=== PATIENT | male | born 1960 | race Caucasian/White ===

== ENCOUNTER 2017-02-21 10:00 | Emergency (ER) | payer MEDICARE, OTHER ==
[~2017-02-21 10:00] MED LIST: AMB10 PO; AMIT100 PO; AMOXIL500C PO; APRES25 PO; ASA5GR PO; ASAB PO; ASPIRIN PO; AT25 PO; ATV1 PO; B121000P IM; BACLOFEN20 MG PO; CELEXA40 MG PO; CIP2 PO; CORTISONE INJECTION; CYMBALTA30 PO; CYMBALTA60 PO; DIGITEK0.125 MG PO; FLAG500TAB PO; FLEX PO; FLOMAX4 PO; FLONASE NAS; FLORASTOR250 MG PO; HCTZ PO; HYGROTON 25 MG25 MG PO; KDUR10 PO; KDUR20 PO; KLONO5 PO; KLOR-CON M2020 MEQ PO; LANTUS SC; LEVAQUIN750 MG PO; LEXAPRO10 PO; LIOR10 PO; LOM PO; LYRICA150 MG PO; METOPROLOL PO; MIRALAXPKT PO; MOBIC15 MG PO; MSCONT60 PO; MSCONTIN PO; MULTIPLE VIT PO; NORCO1 TA1 PO; NORCO1 TAB PO; PCET PO; PERCOCET1 TA4 PO; PLAVIX PO; PRAVACHOL40 MG PO; PRIN10 PO; PRIN5 PO; PROVHFA INH; PROZAC40 MG PO; REM15 PO; REMERON30 MG PO; REST15 PO; SILVADENE1 % TOP; SIMVASTATIN PO; SOMATAB PO; T PO; TOPXL25 PO; TRAZ100 PO; TRAZODONE150 MG PO; TRAZODONE300 MG PO; TRIDERM0.1 % TOP; ULORIC40 MG PO; V5 PO; VALIUM10 MG PO; VENTOLIN HFA INH; X5 PO; XANAX1 MG PO; ZANAFLEX2 MG PO; ZETIA PO; ZOCOR20 PO; ZOFRAN4 PO
[2017-02-21 10:46] LABS: BASOPHILS 0.1 %; BASOPHILS ABSOLUTE 0.01 10/3/uL (0.0-0.16); EOSINOPHILS 2.5 %; EOSINOPHILS ABSOLUTE 0.18 10/3/uL (0.0-0.53); ER CBC TAT 0 Hrs 07 Mins; HEMOGLOBIN 13.8 g/dL (13.6-17.8); IMMATURE GRANULOCYTES 0.1 %; IMMATURE GRANULOCYTES ABSOLUTE 0.01 10/3/uL (0.0-0.11); LYMPHOCYTES 16.9 %; MEAN CORPUS HGB CONC 33.7 g/dL (32.0-36.0); MEAN CORPUSCULAR HEMOGLOB 31.2 pg (26.0-34.0); MEAN CORPUSCULAR VOLUME 92.6 fL (80-100); MEAN PLATELET VOLUME 9.1 fL (9.2-13.0); MONOCYTES 10.4 %; MONOCYTES ABSOLUTE 0.74 10/3/uL (0.21-1.20); NEUTROPHILS ABSOLUTE 4.97 10/3/uL (2.02-8.40); PLATELET COUNT 246 10/3/uL (150-400); RBC DISTRIBUTION WIDTH 13.1 % (12.0-16.0); RED CELL COUNT 4.43 10/6/uL (4.7-6.1); WHITE BLOOD CELLS 7.1 10/3/uL (4.5-10.5)
[2017-02-21 10:49] LABS: MANUAL DIFF NO %
[2017-02-21 10:51] LABS: ASCORBIC ACID (UR NOT ORDER) NEG (NEG); BILIRUBIN, URINE NEGATIVE (NEG); ER URINALYSIS TAT 0 Hrs 12 Mins; KETONE, URINE NEGATIVE (NEG); LEUKOCYTE ESTERASE(NOT OR SMALL (NEG); NITRITE (URINE) NEG (NEG); WBC (NOT ORDERED) (RFLEX) 8 (0-5)
[2017-02-21 11:00] LABS: A/G RATIO 0.9 (0.7-1.9); ALBUMIN 3.4 G/DL (3.5-5.0); BUN (BLOOD UREA NITROGEN) 7 MG/DL (6-23); CALCIUM, SERUM 8.8 MG/DL (8.5-10.4); CHLORIDE, SERUM 104 MMOL/L (96-112); CO2 (CARBON DIOXIDE) 28 MMOL/L (24-34); CREATININE 0.98 MG/DL (0.70-1.30); GFR AFRICAN AMERICAN 98 ML/MIN (>=60); GFR NON AFRICAN AMERICAN 85 ML/MIN (>=60); GLOBULIN 3.7 G/DL (2.5-4.1); SGOT(AST) 13 U/L (5-40); SGPT(ALT) 19 U/L (5-65); SODIUM, SERUM 142 MMOL/L (135-148); TOTAL PROTEIN 7.1 G/DL (6.0-8.5)
[2017-02-21 11:01] LABS: ALKALINE PHOSPHATASE 121 U/L (45-117); GLUCOSE, SERUM 97 MG/DL (60-99); POTASSIUM, SERUM 3.3 MMOL/L (3.5-5.3); TOTAL BILIRUBIN 1.3 MG/DL (0-1.2)
[2017-05-15] MEDS ORDERED: NORV10 PO (10:38)
[2017-05-15] MEDS ORDERED: FLOMAX4 PO (10:38)
[2017-05-15] MEDS ORDERED: LIDODERM TOP (10:39)
[2017-05-15] MEDS ORDERED: LIOR10 PO (10:39)
[2017-05-15] MEDS ORDERED: VOLTAREN1 % TOP (10:39)
[2017-05-15] MEDS ORDERED: DSS PO (10:40)
[2017-05-15] MEDS ORDERED: MELA3 PO (10:40)
[2017-05-15] MEDS ORDERED: VITAMIN D31000 UNIT PO (10:40)
[2017-05-15] MEDS ORDERED: LOM PO (10:41)
[2017-05-15] MEDS ORDERED: MSIMMR15 PO (10:41)
[2017-05-15] MEDS ORDERED: KADIANSR30 PO (10:41)
[2017-05-15] MEDS ORDERED: LYRICA75 PO (10:42)
[2017-05-15] MEDS ORDERED: MYCOSOINT TOP (10:42)
[2017-05-15] MEDS ORDERED: LEVAQUIN750 MG PO (10:43)
[2017-05-15] MEDS ORDERED: KLONO5 PO (10:43)
[2017-05-16] MEDS ORDERED: L20 PO (14:12)
[2017-05-16] MEDS ORDERED: LEXAPRO20 PO (14:14)
[2017-05-16] MEDS ORDERED: VITAMIN B-121000 MC1 SL (14:14)
[2017-05-16] MEDS ORDERED: MICRO-K10 MEQ PO (14:15)
[2017-05-16] MEDS ORDERED: FLOMAX4 PO (14:16)
[2017-05-16] MEDS ORDERED: NORV10 PO (14:16)
[2017-05-16] MEDS ORDERED: LIOR10 PO (14:17)
[2017-05-16] MEDS ORDERED: LIDODERM TOP (14:17)
[2017-05-16] MEDS ORDERED: VOLTAREN1 % TOP (14:18)
[2017-05-16] MEDS ORDERED: TOPXL25 PO (14:18)
[2017-05-16] MEDS ORDERED: ASAEC PO (14:19)
[2017-05-16] MEDS ORDERED: VITAMIN D31000 UNIT PO (14:19)
[2017-05-16] MEDS ORDERED: MELA3 PO (14:20)
[2017-05-16] MEDS ORDERED: MSIMMR15 PO (14:21)
[2017-05-16] MEDS ORDERED: D.O.S.100 MG PO (14:21)
[2017-05-16] MEDS ORDERED: V5 PO (14:22)
[2017-05-16] MEDS ORDERED: LOM PO (14:22)
[2017-05-16] MEDS ORDERED: LYRICA150 MG PO (14:23)
[2017-05-16] MEDS ORDERED: MORPHINE PO (14:24)
[2017-05-16] MEDS ORDERED: BUSPAR5 PO (14:26)
[2017-05-16] MEDS ORDERED: KLONO5 PO (14:26)
[2017-06-13] MEDS ORDERED: LIOR10 PO (09:47)
[2017-06-13] MEDS ORDERED: BISR PR (10:03)
[2017-06-13] MEDS ORDERED: ZOFRAN4 PO (10:03)
[2017-06-13] MEDS ORDERED: HUMALOG SC (10:09)
== END 2017-02-21 14:00 | disposition home or self-care (01) ==
LOC: ER 10:00
PROVIDERS: Emergency Medicine
DX: M54.9 Dorsalgia, unspecified (principal); G89.29 Other chronic pain; I25.2 Old myocardial infarction; I10 Essential (primary) hypertension; K21.9 Gastro-esophageal reflux disease without esophagitis; F32.9 Major depressive disorder, single episode, unspecified; F41.9 Anxiety disorder, unspecified; Z95.1 Presence of aortocoronary bypass graft; Z86.73 Personal history of transient ischemic attack (TIA), and cerebral infarction without residual deficits; Z95.5 Presence of coronary angioplasty implant and graft; E78.5 Hyperlipidemia, unspecified; Z91.040 Latex allergy status; Z79.82 Long term (current) use of aspirin; Z79.899 Other long term (current) drug therapy
CPT/HCPCS: 80053; 81001; 83690; 85025; 87086; 96372; 99283; J1170

== ENCOUNTER 2017-03-08 11:09 | Inpatient (IN) | payer MEDICARE, OTHER ==
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
[2017-03-08 11:42] LABS: BASOPHILS 0.1 %; BASOPHILS ABSOLUTE 0.01 10/3/uL (0.0-0.16); EOSINOPHILS 0.5 %; EOSINOPHILS ABSOLUTE 0.05 10/3/uL (0.0-0.53); HEMATOCRIT 39.9 % (40.0-51.0); HEMOGLOBIN 13.2 g/dL (13.6-17.8); IMMATURE GRANULOCYTES ABSOLUTE 0.11 10/3/uL (0.0-0.11); LYMPHOCYTES 21.2 %; LYMPHOCYTES ABSOLUTE 2.29 10/3/uL (0.67-4.30); MANUAL DIFF NO %; MEAN CORPUS HGB CONC 33.1 g/dL (32.0-36.0); MEAN CORPUSCULAR HEMOGLOB 31.4 pg (26.0-34.0); MEAN PLATELET VOLUME 9.2 fL (9.2-13.0); MONOCYTES 6.6 %; MONOCYTES ABSOLUTE 0.71 10/3/uL (0.21-1.20); NEUTROPHILS 70.6 %; NEUTROPHILS ABSOLUTE 7.62 10/3/uL (2.02-8.40); PLATELET COUNT 206 10/3/uL (150-400); WHITE BLOOD CELLS 10.8 10/3/uL (4.5-10.5)
[2017-03-08 12:03] LABS: A/G RATIO 0.9 (0.7-1.9); ALBUMIN 2.9 G/DL (3.5-5.0); CALCIUM, SERUM 8.1 MG/DL (8.5-10.4); CHLORIDE, SERUM 106 MMOL/L (96-112); CO2 (CARBON DIOXIDE) 29 MMOL/L (24-34); CREATININE 1.07 MG/DL (0.70-1.30); GFR AFRICAN AMERICAN 88 ML/MIN (>=60); GFR NON AFRICAN AMERICAN 76 ML/MIN (>=60); GLOBULIN 3.3 G/DL (2.5-4.1); SGOT(AST) 18 U/L (5-40); SGPT(ALT) 29 U/L (5-65); SODIUM, SERUM 143 MMOL/L (135-148); TOTAL PROTEIN 6.2 G/DL (6.0-8.5); TROPONIN I <0.02 NG/ML (<0.05)
[2017-03-08 12:06] LABS: ALKALINE PHOSPHATASE 165 U/L (45-117); BUN (BLOOD UREA NITROGEN) 14 MG/DL (6-23); GLUCOSE, SERUM 144 MG/DL (60-99); POTASSIUM, SERUM 4.2 MMOL/L (3.5-5.3); TOTAL BILIRUBIN 0.5 MG/DL (0-1.2)
[2017-03-08 13:17] LABS: ASCORBIC ACID (UR NOT ORDER) NEG (NEG); BILIRUBIN, URINE NEGATIVE (NEG); ER URINALYSIS TAT 0 Hrs 12 Mins; KETONE, URINE NEGATIVE (NEG); LEUKOCYTE ESTERASE(NOT OR NEG (NEG); NITRITE (URINE) NEG (NEG); WBC (NOT ORDERED) (RFLEX) 1 (0-5)
[2017-03-08 13:29] LABS: AMPHETAMINES (NOT ORD) NEG (NEG); BARBITURATES (NOT ORDERED NEG (NEG); BENZODIAZEPINES (NOT ORD) POS (NEG); CANNABINOIDS (THC) NEG (NEG); COCAINE (NOT ORDERED) NEG (NEG); OPIATES POS (NEG); PHENCYCLIDINE(PCP) NEG (NEG); TRICYCLICS POS (NEG)
[2017-03-08 13:46] LABS: ACETAMINOPHEN LEVEL (TYLENOL) < 2.0 MCG/ML (10.0-20.0); ALCOHOL < 10 MG/DL (0); SALICYLATE < 1.7 MG/DL (-)
[2017-03-08] MEDS ORDERED: LYRICA75 PO (21:30)
[2017-03-08] MEDS ORDERED: VALIUM10 MG PO (21:36)
[2017-03-08] MEDS ORDERED: ASABAYER PO (21:36)
[2017-03-08] MEDS ORDERED: DOX10 PO (21:36)
[2017-03-08] MEDS ORDERED: PROZAC PO (21:37)
[2017-03-08] MEDS ORDERED: LEXAPRO20 PO (21:38)
[2017-03-08] MEDS ORDERED: L20 PO (21:38)
[2017-03-08] MEDS ORDERED: TOPXL25 PO (21:38)
[2017-03-08] MEDS ORDERED: OXYCOD PO (21:39)
[2017-03-08] MEDS ORDERED: KLOR-CON 1010 MEQ PO (21:39)
[2017-03-08] MEDS ORDERED: BUSPAR10 PO (21:40)
[2017-03-10 06:16] LABS: BASOPHILS 0 %; EOSINOPHILS 0.2 %; EOSINOPHILS ABSOLUTE 0.03 10/3/uL (0.0-0.53); HEMATOCRIT 42.6 % (40.0-51.0); IMMATURE GRANULOCYTES 0.4 %; IMMATURE GRANULOCYTES ABSOLUTE 0.05 10/3/uL (0.0-0.11); LYMPHOCYTES ABSOLUTE 1.11 10/3/uL (0.67-4.30); MEAN CORPUS HGB CONC 32.9 g/dL (32.0-36.0); MEAN CORPUSCULAR HEMOGLOB 31.7 pg (26.0-34.0); MEAN CORPUSCULAR VOLUME 96.6 fL (80-100); MEAN PLATELET VOLUME 9.6 fL (9.2-13.0); MONOCYTES 8.5 %; MONOCYTES ABSOLUTE 1.05 10/3/uL (0.21-1.20); NEUTROPHILS 81.9 %; NEUTROPHILS ABSOLUTE 10.13 10/3/uL (2.02-8.40); PLATELET COUNT 195 10/3/uL (150-400); RBC DISTRIBUTION WIDTH 14.5 % (12.0-16.0); RED CELL COUNT 4.41 10/6/uL (4.7-6.1); WHITE BLOOD CELLS 12.4 10/3/uL (4.5-10.5)
[2017-03-10 06:18] LABS: MANUAL DIFF NO %
[2017-03-10 06:58] LABS: BUN (BLOOD UREA NITROGEN) 15 MG/DL (6-23); CALCIUM, SERUM 8.7 MG/DL (8.5-10.4); CHLORIDE, SERUM 102 MMOL/L (96-112); CO2 (CARBON DIOXIDE) 30 MMOL/L (24-34); CREATININE 0.86 MG/DL (0.70-1.30); FREE T4 1.25 NG/DL (0.76-1.46); GFR AFRICAN AMERICAN 111 ML/MIN (>=60); GFR NON AFRICAN AMERICAN 96 ML/MIN (>=60); POTASSIUM, SERUM 3.8 MMOL/L (3.5-5.3); SODIUM, SERUM 140 MMOL/L (135-148)
[2017-03-10 06:59] LABS: GLUCOSE, SERUM 98 MG/DL (60-99)
[2017-03-10 07:00] LABS: FOLATE 8.1 NG/ML (>5.2)
[2017-03-10 19:29] LABS: BASOPHILS 0.1 %; BASOPHILS ABSOLUTE 0.01 10/3/uL (0.0-0.16); EOSINOPHILS 0.3 %; EOSINOPHILS ABSOLUTE 0.04 10/3/uL (0.0-0.53); HEMATOCRIT 42.1 % (40.0-51.0); HEMOGLOBIN 13.7 g/dL (13.6-17.8); IMMATURE GRANULOCYTES 0.5 %; IMMATURE GRANULOCYTES ABSOLUTE 0.07 10/3/uL (0.0-0.11); LYMPHOCYTES 9.8 %; LYMPHOCYTES ABSOLUTE 1.36 10/3/uL (0.67-4.30); MEAN CORPUS HGB CONC 32.5 g/dL (32.0-36.0); MEAN CORPUSCULAR HEMOGLOB 31.4 pg (26.0-34.0); MEAN CORPUSCULAR VOLUME 96.3 fL (80-100); MEAN PLATELET VOLUME 9.5 fL (9.2-13.0); MONOCYTES 7.9 %; MONOCYTES ABSOLUTE 1.09 10/3/uL (0.21-1.20); NEUTROPHILS 81.4 %; NEUTROPHILS ABSOLUTE 11.24 10/3/uL (2.02-8.40); PLATELET COUNT 187 10/3/uL (150-400); RBC DISTRIBUTION WIDTH 14.1 % (12.0-16.0); RED CELL COUNT 4.37 10/6/uL (4.7-6.1); WHITE BLOOD CELLS 13.8 10/3/uL (4.5-10.5)
[2017-03-10 19:30] LABS: MANUAL DIFF NO %
[2017-03-10 19:41] LABS: BUN (BLOOD UREA NITROGEN) 15 MG/DL (6-23); CALCIUM, SERUM 8.6 MG/DL (8.5-10.4); CHLORIDE, SERUM 99 MMOL/L (96-112); CO2 (CARBON DIOXIDE) 31 MMOL/L (24-34); GFR AFRICAN AMERICAN 96 ML/MIN (>=60); GFR NON AFRICAN AMERICAN 83 ML/MIN (>=60); GLUCOSE, SERUM 112 MG/DL (60-99); POTASSIUM, SERUM 3.5 MMOL/L (3.5-5.3); SODIUM, SERUM 138 MMOL/L (135-148)
[2017-03-11 06:45] LABS: BASOPHILS 0 %; EOSINOPHILS 0.2 %; EOSINOPHILS ABSOLUTE 0.03 10/3/uL (0.0-0.53); HEMATOCRIT 37.1 % (40.0-51.0); HEMOGLOBIN 12.3 g/dL (13.6-17.8); IMMATURE GRANULOCYTES 0.3 %; IMMATURE GRANULOCYTES ABSOLUTE 0.04 10/3/uL (0.0-0.11); LYMPHOCYTES 6.3 %; LYMPHOCYTES ABSOLUTE 0.78 10/3/uL (0.67-4.30); MANUAL DIFF NO %; MEAN CORPUS HGB CONC 33.2 g/dL (32.0-36.0); MEAN CORPUSCULAR HEMOGLOB 31.5 pg (26.0-34.0); MEAN CORPUSCULAR VOLUME 95.1 fL (80-100); MEAN PLATELET VOLUME 9.9 fL (9.2-13.0); MONOCYTES 6.9 %; MONOCYTES ABSOLUTE 0.86 10/3/uL (0.21-1.20); NEUTROPHILS 86.3 %; NEUTROPHILS ABSOLUTE 10.67 10/3/uL (2.02-8.40); PLATELET COUNT 163 10/3/uL (150-400); RBC DISTRIBUTION WIDTH 14.1 % (12.0-16.0); WHITE BLOOD CELLS 12.4 10/3/uL (4.5-10.5)
[2017-03-11 06:55] LABS: BUN (BLOOD UREA NITROGEN) 13 MG/DL (6-23); CALCIUM, SERUM 8.5 MG/DL (8.5-10.4); CHLORIDE, SERUM 98 MMOL/L (96-112); CO2 (CARBON DIOXIDE) 33 MMOL/L (24-34); CREATININE 0.82 MG/DL (0.70-1.30); GFR AFRICAN AMERICAN 113 ML/MIN (>=60); GFR NON AFRICAN AMERICAN 97 ML/MIN (>=60); GLUCOSE, SERUM 121 MG/DL (60-99); POTASSIUM, SERUM 3.7 MMOL/L (3.5-5.3); SODIUM, SERUM 138 MMOL/L (135-148)
[2017-03-12 11:23] LABS: BASOPHILS 0 %; EOSINOPHILS 0.2 %; EOSINOPHILS ABSOLUTE 0.03 10/3/uL (0.0-0.53); HEMATOCRIT 38.8 % (40.0-51.0); HEMOGLOBIN 13.3 g/dL (13.6-17.8); IMMATURE GRANULOCYTES 0.4 %; IMMATURE GRANULOCYTES ABSOLUTE 0.05 10/3/uL (0.0-0.11); LYMPHOCYTES 6.9 %; LYMPHOCYTES ABSOLUTE 0.85 10/3/uL (0.67-4.30); MEAN CORPUS HGB CONC 34.3 g/dL (32.0-36.0); MEAN CORPUSCULAR HEMOGLOB 31.9 pg (26.0-34.0); MEAN PLATELET VOLUME 10.2 fL (9.2-13.0); MONOCYTES 10.3 %; MONOCYTES ABSOLUTE 1.27 10/3/uL (0.21-1.20); NEUTROPHILS 82.2 %; NEUTROPHILS ABSOLUTE 10.13 10/3/uL (2.02-8.40); PLATELET COUNT 179 10/3/uL (150-400); RBC DISTRIBUTION WIDTH 14.1 % (12.0-16.0); RED CELL COUNT 4.17 10/6/uL (4.7-6.1); WHITE BLOOD CELLS 12.3 10/3/uL (4.5-10.5)
[2017-03-12 11:25] LABS: MANUAL DIFF NO %
[2017-03-12 11:35] LABS: BUN (BLOOD UREA NITROGEN) 12 MG/DL (6-23); CALCIUM, SERUM 9.2 MG/DL (8.5-10.4); CHLORIDE, SERUM 96 MMOL/L (96-112); CO2 (CARBON DIOXIDE) 33 MMOL/L (24-34); CREATININE 0.81 MG/DL (0.70-1.30); GFR AFRICAN AMERICAN 114 ML/MIN (>=60); GFR NON AFRICAN AMERICAN 98 ML/MIN (>=60); GLUCOSE, SERUM 101 MG/DL (60-99); SODIUM, SERUM 137 MMOL/L (135-148)
[2017-03-12 11:36] LABS: PHOSPHORUS, SERUM 2.1 MG/DL (2.5-4.5); POTASSIUM, SERUM 3.3 MMOL/L (3.5-5.3)
[2017-03-12 14:14] LABS: ASCORBIC ACID (UR NOT ORDER) NEG (NEG); BILIRUBIN, URINE NEGATIVE (NEG); KETONE, URINE TRACE MG/DL (NEG); LEUKOCYTE ESTERASE(NOT OR NEG (NEG); WBC (NOT ORDERED) (RFLEX) 1 (0-5)
[2017-03-13 06:57] LABS: PHOSPHORUS, SERUM 2.8 MG/DL (2.5-4.5); POTASSIUM, SERUM 3.4 MMOL/L (3.5-5.3)
[2017-03-15 11:22] LABS: BASOPHILS 0 %; EOSINOPHILS 0.6 %; EOSINOPHILS ABSOLUTE 0.05 10/3/uL (0.0-0.53); IMMATURE GRANULOCYTES 0.5 %; IMMATURE GRANULOCYTES ABSOLUTE 0.04 10/3/uL (0.0-0.11); LYMPHOCYTES ABSOLUTE 0.53 10/3/uL (0.67-4.30); MEAN CORPUS HGB CONC 33.1 g/dL (32.0-36.0); MEAN CORPUSCULAR HEMOGLOB 31.4 pg (26.0-34.0); MEAN CORPUSCULAR VOLUME 94.9 fL (80-100); MEAN PLATELET VOLUME 9.1 fL (9.2-13.0); MONOCYTES 4.2 %; MONOCYTES ABSOLUTE 0.37 10/3/uL (0.21-1.20); NEUTROPHILS 88.7 %; NEUTROPHILS ABSOLUTE 7.79 10/3/uL (2.02-8.40); PLATELET COUNT 186 10/3/uL (150-400); RBC DISTRIBUTION WIDTH 14.1 % (12.0-16.0); WHITE BLOOD CELLS 8.8 10/3/uL (4.5-10.5)
[2017-03-15 11:24] LABS: HEMATOCRIT 31.4 % (40.0-51.0); HEMOGLOBIN 10.4 g/dL (13.6-17.8); MANUAL DIFF NO %; RED CELL COUNT 3.31 10/6/uL (4.7-6.1)
[2017-03-15 11:34] LABS: BUN (BLOOD UREA NITROGEN) 13 MG/DL (6-23); CALCIUM, SERUM 7.9 MG/DL (8.5-10.4); CHLORIDE, SERUM 104 MMOL/L (96-112); CO2 (CARBON DIOXIDE) 29 MMOL/L (24-34); CREATININE 0.78 MG/DL (0.70-1.30); GFR AFRICAN AMERICAN 115 ML/MIN (>=60); GFR NON AFRICAN AMERICAN 100 ML/MIN (>=60); GLUCOSE, SERUM 142 MG/DL (60-99); POTASSIUM, SERUM 3.9 MMOL/L (3.5-5.3); SODIUM, SERUM 139 MMOL/L (135-148)
[2017-03-16 06:01] LABS: HEMATOCRIT 28.4 % (40.0-51.0); HEMOGLOBIN 9.5 g/dL (13.6-17.8); MEAN CORPUS HGB CONC 33.5 g/dL (32.0-36.0); MEAN CORPUSCULAR HEMOGLOB 31.7 pg (26.0-34.0); MEAN CORPUSCULAR VOLUME 94.7 fL (80-100); PLATELET COUNT 234 10/3/uL (150-400); RBC DISTRIBUTION WIDTH 14.4 % (12.0-16.0); WHITE BLOOD CELLS 12.2 10/3/uL (4.5-10.5)
[2017-03-16 06:13] LABS: BUN (BLOOD UREA NITROGEN) 14 MG/DL (6-23); CALCIUM, SERUM 8.3 MG/DL (8.5-10.4); CHLORIDE, SERUM 105 MMOL/L (96-112); CO2 (CARBON DIOXIDE) 34 MMOL/L (24-34); CREATININE 0.79 MG/DL (0.70-1.30); GFR AFRICAN AMERICAN 115 ML/MIN (>=60); GFR NON AFRICAN AMERICAN 99 ML/MIN (>=60); GLUCOSE, SERUM 132 MG/DL (60-99); POTASSIUM, SERUM 4.3 MMOL/L (3.5-5.3); SODIUM, SERUM 141 MMOL/L (135-148)
[2017-03-16 07:14] LABS: BAND NEUTROPHILS 1 %; LYMPHOCYTES 7 %; LYMPHOCYTES ABSOLUTE (CALC) 0.85 10/3/uL (0.67-4.30); MONOCYTES 7 %; MONOCYTES ABSOLUTE (CALC) 0.85 10/3/uL (0.21-1.20); NEUTROPHILS ABSOLUTE (CALC) 10.49 10/3/uL (2.02-8.40); PLATELET ESTIMATE ADQ (ADEQUATE); RBC MORPHOLOGY NORM (NORMAL); SEGMENTED NEUTROPHIL (0) 85 %; TOTAL NUCLEATED CELLS 100
[2017-03-17 04:09] LABS: BASOPHILS 0.1 %; BASOPHILS ABSOLUTE 0.01 10/3/uL (0.0-0.16); EOSINOPHILS 2.5 %; EOSINOPHILS ABSOLUTE 0.25 10/3/uL (0.0-0.53); HEMATOCRIT 27.2 % (40.0-51.0); IMMATURE GRANULOCYTES 0.4 %; IMMATURE GRANULOCYTES ABSOLUTE 0.04 10/3/uL (0.0-0.11); LYMPHOCYTES 17.6 %; LYMPHOCYTES ABSOLUTE 1.78 10/3/uL (0.67-4.30); MEAN CORPUS HGB CONC 33.1 g/dL (32.0-36.0); MEAN CORPUSCULAR HEMOGLOB 31.5 pg (26.0-34.0); MEAN CORPUSCULAR VOLUME 95.1 fL (80-100); MEAN PLATELET VOLUME 9.4 fL (9.2-13.0); MONOCYTES 8.7 %; MONOCYTES ABSOLUTE 0.88 10/3/uL (0.21-1.20); NEUTROPHILS 70.7 %; NEUTROPHILS ABSOLUTE 7.15 10/3/uL (2.02-8.40); PLATELET COUNT 242 10/3/uL (150-400); RBC DISTRIBUTION WIDTH 14.3 % (12.0-16.0); RED CELL COUNT 2.86 10/6/uL (4.7-6.1); WHITE BLOOD CELLS 10.1 10/3/uL (4.5-10.5)
[2017-03-17 04:10] LABS: MANUAL DIFF NO %
[2017-03-17 04:21] LABS: CALCIUM, SERUM 8.3 MG/DL (8.5-10.4); CHLORIDE, SERUM 102 MMOL/L (96-112); CO2 (CARBON DIOXIDE) 35 MMOL/L (24-34); CREATININE 0.77 MG/DL (0.70-1.30); GFR AFRICAN AMERICAN 116 ML/MIN (>=60); GFR NON AFRICAN AMERICAN 100 ML/MIN (>=60); GLUCOSE, SERUM 124 MG/DL (60-99); POTASSIUM, SERUM 3.9 MMOL/L (3.5-5.3); SODIUM, SERUM 140 MMOL/L (135-148)
[2017-03-17 04:27] LABS: BUN (BLOOD UREA NITROGEN) 18 MG/DL (6-23)
[2017-05-15] MEDS ORDERED: NORV10 PO (10:38)
[2017-05-15] MEDS ORDERED: FLOMAX4 PO (10:38)
[2017-05-15] MEDS ORDERED: VOLTAREN1 % TOP (10:39)
[2017-05-15] MEDS ORDERED: LIOR10 PO (10:39)
[2017-05-15] MEDS ORDERED: LIDODERM TOP (10:39)
[2017-05-15] MEDS ORDERED: VITAMIN D31000 UNIT PO (10:40)
[2017-05-15] MEDS ORDERED: DSS PO (10:40)
[2017-05-15] MEDS ORDERED: MELA3 PO (10:40)
[2017-05-15] MEDS ORDERED: LOM PO (10:41)
[2017-05-15] MEDS ORDERED: KADIANSR30 PO (10:41)
[2017-05-15] MEDS ORDERED: MSIMMR15 PO (10:41)
[2017-05-15] MEDS ORDERED: LYRICA75 PO (10:42)
[2017-05-15] MEDS ORDERED: MYCOSOINT TOP (10:42)
[2017-05-15] MEDS ORDERED: LEVAQUIN750 MG PO (10:43)
[2017-05-15] MEDS ORDERED: KLONO5 PO (10:43)
[2017-05-16] MEDS ORDERED: L20 PO (14:12)
[2017-05-16] MEDS ORDERED: VITAMIN B-121000 MC1 SL (14:14)
[2017-05-16] MEDS ORDERED: LEXAPRO20 PO (14:14)
[2017-05-16] MEDS ORDERED: MICRO-K10 MEQ PO (14:15)
[2017-05-16] MEDS ORDERED: FLOMAX4 PO (14:16)
[2017-05-16] MEDS ORDERED: NORV10 PO (14:16)
[2017-05-16] MEDS ORDERED: LIDODERM TOP (14:17)
[2017-05-16] MEDS ORDERED: LIOR10 PO (14:17)
[2017-05-16] MEDS ORDERED: TOPXL25 PO (14:18)
[2017-05-16] MEDS ORDERED: VOLTAREN1 % TOP (14:18)
[2017-05-16] MEDS ORDERED: ASAEC PO (14:19)
[2017-05-16] MEDS ORDERED: VITAMIN D31000 UNIT PO (14:19)
[2017-05-16] MEDS ORDERED: MELA3 PO (14:20)
[2017-05-16] MEDS ORDERED: MSIMMR15 PO (14:21)
[2017-05-16] MEDS ORDERED: D.O.S.100 MG PO (14:21)
[2017-05-16] MEDS ORDERED: V5 PO (14:22)
[2017-05-16] MEDS ORDERED: LOM PO (14:22)
[2017-05-16] MEDS ORDERED: LYRICA150 MG PO (14:23)
[2017-05-16] MEDS ORDERED: MORPHINE PO (14:24)
[2017-05-16] MEDS ORDERED: KLONO5 PO (14:26)
[2017-05-16] MEDS ORDERED: BUSPAR5 PO (14:26)
[2017-06-13] MEDS ORDERED: LIOR10 PO (09:47)
[2017-06-13] MEDS ORDERED: ZOFRAN4 PO (10:03)
[2017-06-13] MEDS ORDERED: BISR PR (10:03)
[2017-06-13] MEDS ORDERED: HUMALOG SC (10:09)
== END 2017-03-19 17:02 | DRG 459 ==
LOC: ER 11:09 → 5SO 23:26 → 3SO 03-15 12:07
PROVIDERS: Emergency Medicine; Internal Medicine; Nurse Practitioner Acute Care; Orthopaedic Surgery
PROC: 0PU43JZ Supplement Thoracic Vertebra with Synthetic Substitute, Percutaneous Approach (ICD-10-PCS; 2017-03-10)
PROC: 0QS03ZZ Reposition Lumbar Vertebra, Percutaneous Approach (ICD-10-PCS; 2017-03-10)
PROC: 0QU03JZ Supplement Lumbar Vertebra with Synthetic Substitute, Percutaneous Approach (ICD-10-PCS; 2017-03-10)
PROC: 0PB43ZX Excision of Thoracic Vertebra, Percutaneous Approach, Diagnostic (ICD-10-PCS; 2017-03-10)
PROC: 0PS43ZZ Reposition Thoracic Vertebra, Percutaneous Approach (ICD-10-PCS; principal; 2017-03-10 17:15)
PROC: 0QS004Z Reposition Lumbar Vertebra with Internal Fixation Device, Open Approach (ICD-10-PCS; 2017-03-15)
PROC: 0PS404Z Reposition Thoracic Vertebra with Internal Fixation Device, Open Approach (ICD-10-PCS; 2017-03-15)
PROC: 0RGA0Z1 (ICD-10-PCS; 2017-03-15)
PROC: 0SG00Z1 (ICD-10-PCS; 2017-03-15)
PROC: 4A11X4G Monitoring of Peripheral Nervous Electrical Activity, Intraoperative, External Approach (ICD-10-PCS; 2017-03-15)
PROC: 0RG70Z1 (ICD-10-PCS; 2017-03-15 06:45)
DX: S22.089A Unspecified fracture of T11-T12 vertebra, initial encounter for closed fracture (principal); G93.40 Encephalopathy, unspecified; S24.154A Other incomplete lesion at T11-T12 level of thoracic spinal cord, initial encounter; S32.019A Unspecified fracture of first lumbar vertebra, initial encounter for closed fracture; G62.9 Polyneuropathy, unspecified; I48.0 Paroxysmal atrial fibrillation; F32.9 Major depressive disorder, single episode, unspecified; E11.9 Type 2 diabetes mellitus without complications; I25.10 Atherosclerotic heart disease of native coronary artery without angina pectoris; F41.9 Anxiety disorder, unspecified; G89.29 Other chronic pain; G25.0 Essential tremor; F10.10 Alcohol abuse, uncomplicated; G47.33 Obstructive sleep apnea (adult) (pediatric); Z90.49 Acquired absence of other specified parts of digestive tract; Z95.5 Presence of coronary angioplasty implant and graft; Z95.1 Presence of aortocoronary bypass graft; Z86.73 Personal history of transient ischemic attack (TIA), and cerebral infarction without residual deficits; Z86.718 Personal history of other venous thrombosis and embolism; Z98.890 Other specified postprocedural states; Z79.82 Long term (current) use of aspirin; Z79.899 Other long term (current) drug therapy; V43.52XA Car driver injured in collision with other type car in traffic accident, initial encounter; Z91.040 Latex allergy status
CPT/HCPCS: 36415; 70450; 70551; 71010; 72125; 72146; 72148; 74176; 80048; 80053; 80305; 80307; 81001; 82607; 82746; 82962; 83036; 83735; 84100; 84132; 84439; 84443; 84484; 85007; 85025; 85027; 85347; 86850; 86900; 86901; 87641; 88304; 88307; 88311; 88341; 88342; 88360; 93005; 93971; 96374; 96375; 97110-GO; 97110-GP; 97162-GP; 97164-GP; 97166-GO; 97168-GO; 97530-GP; 99285; A9270-GY; C1713; C1726; C1751; C1769; G8978-CM-GP; G8979-CK-GP; G8987-CK-GO; G8988-CJ-GO; J0360; J0690; J1170; J1644; J2250; J2270; J2405; J2550; J2710; J2930; J3010; J3370; J3411; Q9967